=== PATIENT | male | born 1925 | race Caucasian/White ===

== ENCOUNTER 2017-01-19 00:13 | Inpatient (IN) | payer OTHER ==
[~2017-01-19] VITALS: Ht 165.1 cm; Wt 81.9 kg
[~2017-01-19 00:13] MED LIST: NAPROXEN PO; PROCARDIA10 MG PO; PROPRANOLOL HCL40 MG PO; [UNRECOGNIZED DRUG - OTHER] PO
[2017-01-19 00:59] LABS: BASOPHIL % 0.4 % (0-2); PLATELET COUNT 234 x10^3mcL (130-400); RED CELL DISTRIBUTION WIDTH 14.5 % (11.5-14.5)
[2017-01-19 01:16] LABS: ALKALINE PHOSPHATASE 108 U/L (46-116); ALT/SGPT 12 U/L (16-63); AST/SGOT 11 U/L (15-37); BILIRUBIN TOTAL 0.5 mg/dL (0.20-1.00); CALCIUM 8.3 mg/dL (8.5-10.1); CARBON DIOXIDE 29.5 mmol/L (21-32); CHLORIDE SERUM 98 mmol/L (98-107); GLUCOSE SERUM 117 mg/dL (74-106); SODIUM SERUM 138 mmol/L (136-145); TOTAL PROTEIN, SERUM 6.9 g/dL (6.4-8.2)
[2017-01-19 01:17] LABS: ALBUMIN 3.2 g/dL (3.4-5.0)
[2017-01-19 01:18] LABS: CREATININE SERUM 6.5 mg/dL (0.7-1.3)
[2017-01-19 01:21] LABS: CK-MB 4.1 ng/mL (0-3.6)
[2017-01-19] MEDS ORDERED: GOOD SENSE OMEP20 MG PO (03:31)
[2017-01-19] MEDS ORDERED: NITROGLYCERIN0.4 MG SL (03:31)
[2017-01-19] MEDS ORDERED: CARVEDILOL3.125 M1 PO (03:31)
[2017-01-19] MEDS ORDERED: NORCO1 TA2 PO (03:32)
[2017-01-19] MEDS ORDERED: AMIODARONE HCL200 MG PO ×2 (03:32→03:33)
[2017-01-19] MEDS ORDERED: LEVOTHYROXINE0.05 M2 PO (03:32)
[2017-01-19] MEDS ORDERED: GABAPENTIN100 M2 PO (03:33)
[2017-01-19] MEDS ORDERED: MASON NATURAL1000 IU (03:33)
[2017-01-19] MEDS ORDERED: ATORVASTATIN CA40 M1 PO (03:33)
[2017-01-19] MEDS ORDERED: ASPIR 8181 MG PO (03:33)
[2017-01-19] MEDS ORDERED: RANEXA500 M2 PO (03:34)
[2017-01-19] MEDS ORDERED: CLOPIDOGREL75 M1 PO (03:34)
[2017-01-19] MEDS ORDERED: AMLODIPINE BES2.5 M1 PO (03:34)
[2017-01-19 04:33] VITALS: BP 128/48
[2017-01-19] MEDS ORDERED: LISINOPRIL5 MG PO (04:34)
[2017-01-19 04:51] LABS: T3 TOTAL 0.69 ng/mL
[2017-01-19 04:54] LABS: FREE T4 1.1 ng/dL (0.76-1.46); IRON 39 ug/dL (65-170); T4(THYROXINE) 8.5 ug/dL (4.7-13.3)
[2017-01-19 04:57] LABS: TOTAL IRON BINDING CAPACITY 156 ug/dL (250-450)
[2017-01-19 05:03] LABS: MAGNESIUM 1.6 mg/dL (1.8-2.4)
[2017-01-19 05:05] LABS: CHOLESTEROL/HDL RATIO 2.9
[2017-01-19 05:45] LABS: BASOPHIL % 0.3 % (0-2); PLATELET COUNT 229 x10^3mcL (130-400); RED BLOOD CELLS 2.75 M/mm3 (4.52-5.90)
[2017-01-19 05:59] LABS: CALCIUM 8.8 mg/dL (8.5-10.1); CHLORIDE SERUM 98 mmol/L (98-107); GLUCOSE SERUM 103 mg/dL (74-106); MAGNESIUM 1.8 mg/dL (1.8-2.4); PHOSPHOROUS 5.2 mg/dL (2.5-4.9); SODIUM SERUM 138 mmol/L (136-145); URIC ACID 3.8 mg/dL (3.5-7.2)
[2017-01-19 06:01] LABS: CREATININE SERUM 6.8 mg/dL (0.7-1.3)
[2017-01-19 09:43] VITALS: BP 110/46
[2017-01-19 15:18] VITALS: BP 107/36
[2017-01-19 18:48] VITALS: BP 107/54
[2017-01-19 21:49] VITALS: BP 135/65
[2017-01-20 06:32] LABS: BASOPHIL % 0.4 % (0-2); PLATELET COUNT 213 x10^3mcL (130-400); RED CELL DISTRIBUTION WIDTH 14.4 % (11.5-14.5)
[2017-01-20 07:00] LABS: CALCIUM 8.3 mg/dL (8.5-10.1); CARBON DIOXIDE 30.1 mmol/L (21-32); CHLORIDE SERUM 102 mmol/L (98-107); GLUCOSE SERUM 119 mg/dL (74-106); MAGNESIUM 1.9 mg/dL (1.8-2.4); PHOSPHOROUS 4.2 mg/dL (2.5-4.9); POTASSIUM SERUM 4.5 mmol/L (3.5-5.1); SODIUM SERUM 139 mmol/L (136-145)
[2017-01-20 07:04] VITALS: BP 107/56
[2017-01-20 07:05] LABS: CREATININE SERUM 4.4 mg/dL (0.7-1.3)
[2017-01-20 10:02] VITALS: BP 92/51
[2017-01-20 14:13] VITALS: BP 102/84
[2017-01-20 17:31] VITALS: BP 112/54; BP 115/84
[2017-01-20 20:30] VITALS: BP 115/84
[2017-01-20 21:53] VITALS: BP 117/79
[2017-01-21 06:55] VITALS: BP 92/53
[2017-01-21 07:59] LABS: BASOPHIL % 0.1 % (0-2); PLATELET COUNT 232 x10^3mcL (130-400); RED CELL DISTRIBUTION WIDTH 14.2 % (11.5-14.5)
[2017-01-21 08:21] LABS: CALCIUM 8.3 mg/dL (8.5-10.1); CARBON DIOXIDE 24.9 mmol/L (21-32); CHLORIDE SERUM 102 mmol/L (98-107); GLUCOSE SERUM 107 mg/dL (74-106); POTASSIUM SERUM 5.3 mmol/L (3.5-5.1); SODIUM SERUM 141 mmol/L (136-145)
[2017-01-21 08:38] LABS: CREATININE SERUM 6.4 mg/dL (0.7-1.3)
== END 2017-01-21 14:24 | disposition expired | DRG 425 ==
LOC: ED 00:13 → DU 03:06
PROVIDERS: Emergency Medicine; ADMIT Family Medicine
DX: E87.8 Other disorders of electrolyte and fluid balance, not elsewhere classified (principal); N17.0 Acute kidney failure with tubular necrosis; G93.41 Metabolic encephalopathy; I50.43 Acute on chronic combined systolic (congestive) and diastolic (congestive) heart failure; E44.1 Mild protein-calorie malnutrition; E83.42 Hypomagnesemia; C43.39 Malignant melanoma of other parts of face; D63.1 Anemia in chronic kidney disease; I13.2 Hypertensive heart and chronic kidney disease with heart failure and with stage 5 chronic kidney disease, or end stage renal disease; N18.6 End stage renal disease; E03.9 Hypothyroidism, unspecified; K21.9 Gastro-esophageal reflux disease without esophagitis; I25.119 Atherosclerotic heart disease of native coronary artery with unspecified angina pectoris; E83.39 Other disorders of phosphorus metabolism; E78.5 Hyperlipidemia, unspecified; Z99.3 Dependence on wheelchair; Z99.2 Dependence on renal dialysis; Z79.82 Long term (current) use of aspirin; Z87.891 Personal history of nicotine dependence; Z86.73 Personal history of transient ischemic attack (TIA), and cerebral infarction without residual deficits
CPT/HCPCS: 82962; 83880; 84439; 97110-GP; 97530-GP; J0610; J3475; J3490; J7030; J7620; Q0092